=== PATIENT | male | born 1965 | race Caucasian/White ===

== ENCOUNTER 2022-07-09 16:10 | Emergency (ER) | payer OTHER, SELFPAY ==
--- NOTE | 2022-07-09 | ECG_ITS ---
Test Reason : SHOULDER PAIN/RULE OUT DC Blood Pressure : / mmHG Vent. Rate : 105 BPM Atrial Rate : 105 BPM P-R Int : 180 ms QRS Dur : 078 ms QT Int : 324 ms P-R-T Axes : 043 -06 025 degrees QTc Int : 428 ms Sinus tachycardia with occasional Premature ventricular complexes and Fusion complexes Inferior infarct , age undetermined Abnormal ECG No previous ECGs available Referred By: Generic ED Physician Electronically Signed By:DEVANG GERARDO MD
--- NOTE | ~2022-07-09 | XR_ITS ---
EXAMINATION: XR CHEST CLINICAL INFORMATION: Shoulder pain, vomiting COMPARISON: None available. TECHNIQUE: 2 views of the chest were obtained. FINDINGS: The lungs appear clear and there is no lobar or segmental airspace consolidation or groundglass opacity or effusion. There is no pneumothorax. The costophrenic sulci are well-defined. The heart is normal in size. The vascularity is normal. There are degenerative changes thoracic spine. Some punctate mineralization is seen adjacent to the right shoulder greater tuberosity suggesting calcific tendinosis. No free air beneath diaphragms. XR/XR chest 2V IMPRESSION: -Lungs clear. No pneumothorax, infiltrate, or effusion. -Punctate mineralization adjacent to right shoulder greater tuberosity suggesting calcific tendinosis.
--- NOTE | ~2022-07-09 | CT_ITS ---
EXAMINATION: CT ABDOMEN AND PELVIS WITH CONTRAST CLINICAL INFORMATION: Left lower quadrant abdominal pain COMPARISON: None available. TECHNIQUE: Multidetector volumetric images were obtained from the superior aspect of the liver through the pubic symphysis following administration 85 mL of Omnipaque 350 intravenous contrast. Sagittal and coronal reformatted images were obtained on the technologist's workstation. Oral contrast: No This CT examination was performed using dose optimization techniques as appropriate, variously including the following: *Automated exposure control *Adjustment of mA and/or kV according to patient size (this includes techniques or standardized protocols for targeted exams where dose is matched to indication/reason for exam; i.e. extremities or head) *Use of iterative reconstruction technique DLP: 1161 mGy-cm FINDINGS: LUNG BASES: See report from CT chest same day LIVER, GALLBLADDER, AND BILIARY TREE: The liver is mildly enlarged at 17.8 cm with decreased attenuation consistent with hepatic steatosis. The gallbladder contains small layering gallstones but is otherwise unremarkable with no evidence of pericholecystic inflammatory changes. PANCREAS: Unremarkable. SPLEEN: Unremarkable. ADRENAL GLANDS: Unremarkable. KIDNEYS AND URETERS: The kidneys are normal in size, shape, and attenuation. 2 adjacent benign Bosniak class I renal cysts are present at the upper pole of the left kidney which need no additional imaging or follow-up. No suspicious solid renal masses are seen. No hydronephrosis, hydroureter, or calculi seen. There is bilateral nonspecific perinephric stranding. BLADDER: Unremarkable. GASTROINTESTINAL TRACT: The small and large bowel are unremarkable aside from a few scattered colonic diverticula without diverticulitis. The appendix is unremarkable. ABDOMINAL WALL: No significant hernia is appreciated. Tiny left inguinal hernia containing only fat. LYMPH NODES: No retroperitoneal lymphadenopathy. VASCULAR: Unremarkable. PELVIC VISCERA: The prostate and seminal vesicles are unremarkable. OSSEOUS STRUCTURES: Unremarkable. CT/CT abdomen pelvis w IV con IMPRESSION: 1. A cause for the patient's acute left lower quadrant pain has not been found. 2. Incidental note made of mildly enlarged fatty liver, cholelithiasis without cholecystitis and a few scattered colonic diverticula without diverticulitis. Fleischner guidelines were followed.
--- NOTE | ~2022-07-09 | CT_ITS ---
EXAMINATION: CT ANGIOGRAM OF THE CHEST WITH AND WITHOUT CONTRAST (CT PULMONARY ANGIOGRAM FOR PE) CLINICAL INFORMATION: Reason for Exam Pleuritic chest pain, shortness of breath COMPARISON: None available. TECHNIQUE: Prior to contrast administration, noncontrast localization images were obtained. Subsequently, multidetector volumetric imaging was performed from the thoracic inlet to below the diaphragms following the administration of 85 mL Omnipaque 350 intravenous contrast. No contrast reaction reported Sagittal, coronal, and MIP oblique sagittal reformatted images were obtained on the CT workstation, uploaded to PACS, and reviewed. This CT examination was performed using dose optimization techniques as appropriate, variously including the following: *Automated exposure control *Adjustment of mA and/or kV according to patient size (this includes techniques or standardized protocols for targeted exams where dose is matched to indication/reason for exam; i.e. extremities or head) *Use of iterative reconstruction technique Total exam dose-length product 555 mGy-cm FINDINGS: QUALITY OF STUDY/CONTRAST BOLUS: Satisfactory. PULMONARY ARTERIES: No pulmonary emboli. THORACIC AORTA: No aneurysm. LUNG: No focal consolidation, nodules or masses. PLEURA: No pleural effusion or pneumothorax. MEDIASTINUM: Normal heart size. No pericardial effusion. No hilar or mediastinal lymphadenopathy. No evidence of septal bowing or right heart strain. CORONARY ARTERY CALCIFICATION: Three-vessel coronary calcifications present CHEST WALL/AXILLA: No axillary or internal mammary lymphadenopathy. OSSEOUS STRUCTURES: No acute or suspicious osseous abnormality. UPPER ABDOMEN: See report from CT abdomen pelvis performed contemporaneously. No reflux of contrast into the hepatic veins to suggest elevated right heart pressures. CT/CT angio chest PE protocol IMPRESSION: No evidence of pulmonary emboli. VTE: negative.
[2022-07-09 16:20] VITALS: BP 143/84; PULSE 89; RESP 18; TEMP 37.1; O2SAT 95; BMI 42.5
--- NOTE | 2022-07-09 16:20 | ED.GENADULT ---
HPI - General Adult General Chief complaint: Abdominal Pain <Aminah Hurley NP - Last Filed: 07/09/22 16:24> Stated complaint: Sent by to rule out coronary syndrome? <Aminah Hurley NP - Last Filed: 07/09/22 16:24> Time Seen by Provider: 07/09/22 17:40 <Aminah Hurley NP - Last Filed: 07/09/22 16:24> Source: patient <CHIOMA Estrada - Last Filed: 07/09/22 22:10> Mode of arrival: ambulatory <CHIOMA Estrada - Last Filed: 07/09/22 22:10> Limitations: no limitations <CHIOMA Estrada - Last Filed: 07/09/22 22:10> History of Present Illness HPI narrative: 57-year-old male history diabetes, rheumatoid arthritis, CVA in 2010, hypertension, coronary artery disease presenting for evaluation of diffuse abdominal pain, nausea, vomiting, black stools for the past month. Patient reports that the abdominal pain is diffuse in nature however worsened to the left side of abdomen. Patient tells me that it is worse when he goes over bumps in the road, certain movements also make it worse. He tells me sometimes he gets sensitivity to the skin of his abdomen and he feels a burning pain throughout his entire abdomen. He was seen by a someone at his PCPs office who recommended he come in for evaluation to rule out NC with atypical presentation. Patient tells me he does not have chest pain however he does report he has been having shortness of breath since yesterday, worse with exertion. He tells me he typically does not have shortness of breath. Patient denies fevers, chills, nausea, vomiting, headache, vision changes, dizziness, weakness. <CHIOMA Estrada Last Filed: 07/09/22 22:10> Related Data Home medications: Previous Rx's Medication Instructions Recorded gabapentin 100 mg capsule 100 mg PO BID #20 caps 07/09/22 <Aminah Hurley NP - Last Filed: 07/09/22 16:24> Allergies/adverse reactions: Allergies Allergy/AdvReac Type Severity Reaction Status Date / Time No Known Allergies Allergy Verified 07/09/22 16:20 <Aminah Hurley NP - Last Filed: 07/09/22 16:24> Review of Systems Review of Systems: Constitutional : No Weight loss, No Fever, No Chills, No Fatigue, No Malaise ENT/Mouth : No sore throat, No Rhinorrhea Eyes: No Eye Pain, No Swelling, No Redness Cardiovascular : No Chest Pain, + SOB, No Dyspnea on Exertion, No Orthopnea, No Edema, No Palpitations Respiratory : No Cough, No Sputum, No Wheezing Gastrointestinal : + Nausea, + Vomiting, No Diarrhea, No Constipation, + abdominal Pain, No Hematochezia, No Melena Genitourinary : No Dysuria, No Urinary Frequency, No Hematuria, Musculoskeletal : No joint pain, No Myalgias, No Joint Swelling Skin : No Skin Lesions, No rash Neuro : No Weakness, No Numbness, No Dizziness, No Headache Psych : No Anxiety/Panic, No Depression All other systems reviewed and are negative <CHIOMA Estrada - Last Filed: 07/09/22 22:10> Yes all other systems are reviewed and are negative <CHIOMA Estrada - Last Filed: 07/09/22 22:10> [facility] Past Medical History Attestation statement: The following information was validated with the patient. <CHIOMA Estrada - Last Filed: 07/09/22 22:10> Source: old records reviewed and nursing notes reviewed <CHIOMA Estrada - Last Filed: 07/09/22 22:10> Social History Social History: Social History Alcohol intake: never Smoked in Last 30 Days: No Use of substances other than those prescribed or required for medical reasons: No Advance Directives: No Advance Directives Information Provided: No <Aminah Hurley NP - Last Filed: 07/09/22 16:24> Physical Exam ED Vital Signs: Vital Signs - 24 hr 07/09/22 16:20 07/09/22 17:42 07/09/22 20:23 Temperature 98.7 F 98.2 F Pulse Rate 89 104 H Respiratory Rate 18 18 16 Blood Pressure 143/84 H 151/90 H Pulse Oximetry 95 96 Oxygen Delivery Method Room Air Room Air BMI result Body Mass Index 42.5 <Aminah Hurley NP - Last Filed: 07/09/22 16:24> Vital Signs - 24 hr 07/09/22 16:20 07/09/22 17:42 07/09/22 20:23 Temperature 98.7 F 98.2 F Pulse Rate 89 104 H Respiratory Rate 18 18 16 Blood Pressure 143/84 H 151/90 H Pulse Oximetry 95 96 Oxygen Delivery Method Room Air Room Air BMI result Body Mass Index 42.5 vss <CHIOMA Estrada - Last Filed: 07/09/22 22:10> Appearance: Alert.? Oriented X3.? No acute distress.? Head: Normocephalic, atraumatic, no step-offs or deformities Eyes: Pupils equal, round and reactive to light.? Neck: Normal inspection.? Neck supple.? CVS: Rapid rate normal rythem likely sinus tac.? Pulses normal.? Respiratory: No respiratory distress.? Breath sounds normal.? Abdomen: Soft and nontender.?Normal BS. No rash Skin: Skin warm and dry.? Normal skin color.? Normal skin turgor.? Extremities: No lower extremity edema.? No calf ttp. 5/5 strength to bilateral upper and lower extremities Neuro: Oriented X 3.? No motor deficit.? No sensory deficit. CN 2-12 intact <CHIOMA Estrada - Last Filed: 07/09/22 22:10> Course Course Course Narrative: This is a rapid medical exam. Deferred additional HPI, ROS, PE to primary provider. 57 yo male with history of CAD, DM, RA, CVA 2010, HTN, HLD here with left sided abdominal pain/vomiting/black stool x 1 month. Seen by PCP and referred in to the ER for further eval. Received call from PCP office-their primary concern was r.o ACS. Patient tells me his pain is mid abdomen. No epigastric pain/chest pain. Will obtain labs, EKG, COVID screen, UA. VSS <Aminah Hurley NP - Last Filed: 07/09/22 16:24> Reevaluation(s) Reevaluation #1: CBC no acute findings. Chemistry with no acute findings requiring intervention. Troponin negative, EKG showing sinus tachycardia with occasional PVCs however no signs of ST elevations or inversions or acute ischemia unlikely ACS. Will repeat troponin. COVID negative. CTA abdomen pelvis as well as chest pending at this time. Also pending OBS. <CHIOMA Estrada - Last Filed: 07/09/22 22:10> Time: 19:36 <CHIOMA Estrada - Last Filed: 07/09/22 22:10> Reevaluation #2: Patient refusing OBS will give him outpatient slips for stool samples. He tells me he will be able to give us a stool sample here so I will give him outpatient paperwork. His hemoglobin and hematocrit are stable, no chapis blood in stool per patient. Patient feeling well, refused morphine as he states he is comfortable. <CHIOMA Estrada - Last Filed: 07/09/22 22:10> Time: 21:34 <CHIOMA Estrada - Last Filed: 07/09/22 22:10> Reevaluation #3: Second troponin lower than initial, unlikely that this is ACS. CTA with no PE. CT of the abdomen pelvis unable to identify a cause of patient's left lower quadrant pain. Incidental no of mildly enlarged fatty liver, cholecystitis, no signs of diverticulitis. Patient tells me he has had burning pain before and he took gabapentin for and helped. Will discharge home on gabapentin. <CHIOMA Estrada - Last Filed: 07/09/22 22:10> Time: 22:09 <CHIOMA Estrada - Last Filed: 07/09/22 22:10> Medications Administered Discontinued Medications Generic Name Dose Route Start Last Admin Trade Name Freq PRN Reason Stop Dose Admin Iohexol 100 ml 07/09/22 20:11 07/09/22 20:11 Iohexol 350 Mg/Ml 100 Ml Infus..Btl IV 07/09/22 20:12 85 ml ONCE ONE Administration Morphine Sulfate 4 mg 07/09/22 19:13 07/09/22 20:23 Morphine Sulfate 4 Mg/Ml Cartridge IVPUSH 07/09/22 19:14 Not Given ONCE ONE Protocol <Aminah Hurley NP - Last Filed: 07/09/22 16:24> Medications Administered Discontinued Medications Generic Name Dose Route Start Last Admin Trade Name Tony PRN Reason Stop Dose Admin Iohexol 100 ml 07/09/22 20:11 07/09/22 20:11 Iohexol 350 Mg/Ml 100 Ml Infus..Btl IV 07/09/22 20:12 85 ml ONCE ONE Administration Morphine Sulfate 4 mg 07/09/22 19:13 07/09/22 20:23 Morphine Sulfate 4 Mg/Ml Cartridge IVPUSH 07/09/22 19:14 Not Given ONCE ONE Protocol <CHIOMA Estrada - Last Filed: 07/09/22 22:10> Medical Decision Making Medical Decision Making [facility] Narrative: [id number] 57 year old male presents to ED for evaluation of nausea, vomiting, dark stool and abd pain X1 month, sent in by PCP for evaluation of coronary syndrome. Physical examination benign. Likely neuropathic pain as he describes this as a burning sensation to his abdomen, no signs of shingles. I do not suspect ACS, PE, CHF. DVT. No signs of acute abdomen. Other differentials include musculoskeletal pain. Plan labs, imaging, urine. <CHIOMA Estrada - Last Filed: 07/09/22 22:10> Differential Diagnosis Differential Diagnoses: The differential diagnosis associated with the presentation includes <CHIOMA Estrada - Last Filed: 07/09/22 22:10> Likely neuropathic pain as he describes this as a burning sensation to his abdomen, no signs of shingles. I do not suspect ACS, PE, CHF. No signs of acute abdomen. Other differentials include musculoskeletal pain. <CHIOMA Estrada - Last Filed: 07/09/22 22:10> Admission/Observation Consideration of admission/observation: Escalation of care including admission/observation considered <CHIOMA Estrada Last Filed: 07/09/22 22:10> Unlikely <CHIOMA Estrada - Last Filed: 07/09/22 22:10> Lab Data [facility] Lab Attestation statement: I reviewed the patient's lab results. <CHIOMA Estrada Last Filed: 07/09/22 22:10> Result Diagrams: 07/09/22 16:41 07/09/22 16:41 <Aminah Hurley, BIOLOGY TUTOR - Last Filed: 07/09/22 16:24> Labs: Lab Results 07/09/22 07/09/22 07/09/22 Range/Units 16:41 16:41 16:41 WBC 9.1 (4.8-10.8) X10*3/uL RBC 5.23 (4.60-5.80) X10*6/uL Hgb 16.0 (14.0-18.0) g/dl Hct 47.2 (42.0-52.0) % MCV 90.2 (80.0-98.0) fL MCH 30.6 (27.0-33.0) pg MCHC 33.9 (31.0-36.0) g/dl RDW 13.3 (11.0-16.0) % Plt Count 273 (160-400) X10*3/uL MPV 11.2 (9.4-12.4) fL Immature Gran % (Auto) 0.5 H (0.0-0.4) % Neut % (Auto) 65.0 (45-73) % Lymph % (Auto) 22.5 (20-40) % [place] % (Auto) 8.9 (2-11) % Eos % (Auto) 2.6 (0-4) % Baso % (Auto) 0.5 (0-2) % Lymph # (Auto) 2.1 (1.2-4.9) X10*3/uL [place] # (Auto) 0.8 (0.1-1.2) X10*3/uL Eos # (Auto) 0.2 (0.0-0.4) X10*3/uL Baso # (Auto) 0.1 (0.0-0.2) X10*3/uL Abs Immat Gran (auto) 0.05 H (0.00-0.03) X10*3/uL Absolute Neuts (auto) 5.9 (2.0-8.3) x10*3/uL Absolute Nucleated RBC 0.000 (0.0-0.012) X10*3/uL Nucleated RBC % (auto) 0.0 (0.0-0.2) /100WBC D-Dimer High Sensitivty NG/ML Sodium 139 (135-145) mmol/L Potassium 4.1 (3.3-5.1) mmol/L Chloride 106 (96-108) mmol/L Carbon Dioxide 27 (22-29) mmol/L Anion Gap 10 L (12-20) BUN 16 (9-16) mg/dL Creatinine 0.96 (0.5-1.4) mg/dL Estim Creat Clear Calc 104.3 Estimated GFR > 60 Random Glucose 273 H (60-115) mg/dL Calcium 8.6 (8.4-10.2) mg/dL Total Bilirubin 0.5 (0.0-1.0) mg/dL Direct Bilirubin 0.1 (0.0-0.5) mg/dL AST 21 (5-37) U/L ALT 27 (0-40) U/L Alkaline Phosphatase 92 (39-117) U/L Troponin I High Sens 8.0 (<3.5-35.0) ng/L Total Protein 6.8 (6.5-8.0) g/dL Albumin 3.9 (3.5-5.0) g/dL Lipase 20 (8-78) U/L COVID-19 ([facility]) (Negative) COVID-19 Clin Com 07/09/22 07/09/22 07/09/22 Range/Units 16:41 19:57 19:57 WBC (4.8-10.8) X10*3/uL RBC (4.60-5.80) X10*6/uL Hgb (14.0-18.0) g/dl Hct (42.0-52.0) % MCV (80.0-98.0) fL MCH (27.0-33.0) pg MCHC (31.0-36.0) g/dl RDW (11.0-16.0) % Plt Count (160-400) X10*3/uL MPV (9.4-12.4) fL Immature Gran % (Auto) (0.0-0.4) % Neut % (Auto) (45-73) % Lymph % (Auto) (20-40) % [place] % (Auto) (2-11) % Eos % (Auto) (0-4) % Baso % (Auto) (0-2) % Lymph # (Auto) (1.2-4.9) X10*3/uL [place] # (Auto) (0.1-1.2) X10*3/uL Eos # (Auto) (0.0-0.4) X10*3/uL Baso # (Auto) (0.0-0.2) X10*3/uL Abs Immat Gran (auto) (0.00-0.03) X10*3/uL Absolute Neuts (auto) (2.0-8.3) x10*3/uL Absolute Nucleated RBC (0.0-0.012) X10*3/uL Nucleated RBC % (auto) (0.0-0.2) /100WBC D-Dimer High Sensitivty 373 NG/ML Sodium (135-145) mmol/L Potassium (3.3-5.1) mmol/L Chloride (96-108) mmol/L Carbon Dioxide (22-29) mmol/L Anion Gap (12-20) BUN (9-16) mg/dL Creatinine (0.5-1.4) mg/dL Estim Creat Clear Calc Estimated GFR Random Glucose (60-115) mg/dL Calcium (8.4-10.2) mg/dL Total Bilirubin (0.0-1.0) mg/dL Direct Bilirubin (0.0-0.5) mg/dL AST (5-37) U/L ALT (0-40) U/L Alkaline Phosphatase (39-117) U/L Troponin I High Sens 7.7 (<3.5-35.0) ng/L Total Protein (6.5-8.0) g/dL Albumin (3.5-5.0) g/dL Lipase (8-78) U/L COVID-19 ([facility]) Negative (Negative) COVID-19 Clin Com See Note <Aminah Hurley, BIOLOGY TUTOR - Last Filed: 07/09/22 16:24> Lab Results 07/09/22 07/09/22 07/09/22 Range/Units 16:41 16:41 16:41 WBC 9.1 (4.8-10.8) X10*3/uL RBC 5.23 (4.60-5.80) X10*6/uL Hgb 16.0 (14.0-18.0) g/dl Hct 47.2 (42.0-52.0) % MCV 90.2 (80.0-98.0) fL MCH 30.6 (27.0-33.0) pg MCHC 33.9 (31.0-36.0) g/dl RDW 13.3 (11.0-16.0) % Plt Count 273 (160-400) X10*3/uL MPV 11.2 (9.4-12.4) fL Immature Gran % (Auto) 0.5 H (0.0-0.4) % Neut % (Auto) 65.0 (45-73) % Lymph % (Auto) 22.5 (20-40) % [place] % (Auto) 8.9 (2-11) % Eos % (Auto) 2.6 (0-4) % Baso % (Auto) 0.5 (0-2) % Lymph # (Auto) 2.1 (1.2-4.9) X10*3/uL [place] # (Auto) 0.8 (0.1-1.2) X10*3/uL Eos # (Auto) 0.2 (0.0-0.4) X10*3/uL Baso # (Auto) 0.1 (0.0-0.2) X10*3/uL Abs Immat Gran (auto) 0.05 H (0.00-0.03) X10*3/uL Absolute Neuts (auto) 5.9 (2.0-8.3) x10*3/uL Absolute Nucleated RBC 0.000 (0.0-0.012) X10*3/uL Nucleated RBC % (auto) 0.0 (0.0-0.2) /100WBC D-Dimer High Sensitivty NG/ML Sodium 139 (135-145) mmol/L Potassium 4.1 (3.3-5.1) mmol/L Chloride 106 (96-108) mmol/L Carbon Dioxide 27 (22-29) mmol/L Anion Gap 10 L (12-20) BUN 16 (9-16) mg/dL Creatinine 0.96 (0.5-1.4) mg/dL Estim Creat Clear Calc 104.3 Estimated GFR > 60 Random Glucose 273 H (60-115) mg/dL Calcium 8.6 (8.4-10.2) mg/dL Total Bilirubin 0.5 (0.0-1.0) mg/dL Direct Bilirubin 0.1 (0.0-0.5) mg/dL AST 21 (5-37) U/L ALT 27 (0-40) U/L Alkaline Phosphatase 92 (39-117) U/L Troponin I High Sens 8.0 (<3.5-35.0) ng/L Total Protein 6.8 (6.5-8.0) g/dL Albumin 3.9 (3.5-5.0) g/dL Lipase 20 (8-78) U/L COVID-19 ([facility]) (Negative) COVID-19 Clin Com 07/09/22 07/09/22 07/09/22 Range/Units 16:41 19:57 19:57 WBC (4.8-10.8) X10*3/uL RBC (4.60-5.80) X10*6/uL Hgb (14.0-18.0) g/dl Hct (42.0-52.0) % MCV (80.0-98.0) fL MCH (27.0-33.0) pg MCHC (31.0-36.0) g/dl RDW (11.0-16.0) % Plt Count (160-400) X10*3/uL MPV (9.4-12.4) fL Immature Gran % (Auto) (0.0-0.4) % Neut % (Auto) (45-73) % Lymph % (Auto) (20-40) % [place] % (Auto) (2-11) % Eos % (Auto) (0-4) % Baso % (Auto) (0-2) % Lymph # (Auto) (1.2-4.9) X10*3/uL [place] # (Auto) (0.1-1.2) X10*3/uL Eos # (Auto) (0.0-0.4) X10*3/uL Baso # (Auto) (0.0-0.2) X10*3/uL Abs Immat Gran (auto) (0.00-0.03) X10*3/uL Absolute Neuts (auto) (2.0-8.3) x10*3/uL Absolute Nucleated RBC (0.0-0.012) X10*3/uL Nucleated RBC % (auto) (0.0-0.2) /100WBC D-Dimer High Sensitivty 373 NG/ML Sodium (135-145) mmol/L Potassium (3.3-5.1) mmol/L Chloride (96-108) mmol/L Carbon Dioxide (22-29) mmol/L Anion Gap (12-20) BUN (9-16) mg/dL Creatinine (0.5-1.4) mg/dL Estim Creat Clear Calc Estimated GFR Random Glucose (60-115) mg/dL Calcium (8.4-10.2) mg/dL Total Bilirubin (0.0-1.0) mg/dL Direct Bilirubin (0.0-0.5) mg/dL AST (5-37) U/L ALT (0-40) U/L Alkaline Phosphatase (39-117) U/L Troponin I High Sens 7.7 (<3.5-35.0) ng/L Total Protein (6.5-8.0) g/dL Albumin (3.5-5.0) g/dL Lipase (8-78) U/L COVID-19 ([facility]) Negative (Negative) COVID-19 Clin Com See Note <CHIOMA Estrada Last Filed: 07/09/22 22:10> Independent Interpretation I performed an independent interpretation of an: Plain X-Ray (XR/XR chest 2V IMPRESSION: -Lungs clear. No pneumothorax, infiltrate, or effusion. -Punctate mineralization adjacent to right shoulder greater tuberosity suggesting calcific tendinosis. ) and CT Scan (CT/CT abdomen pelvis w IV con IMPRESSION: 1. A cause for the patient's acute left lower quadrant pain has not been found. 2. Incidental note made of mildly enlarged fatty liver, cholelithiasis without cholecystitis and a few scattered colonic diverticula without diverticulitis. Gaby rosalesl) <CHIOMA Estrada Last Filed: 07/09/22 22:10> Interpretation: CT/CT angio chest PE protocol IMPRESSION: No evidence of pulmonary emboli. VTE: negative. ? ? <CHIOMA Estrada Filed: 07/09/22 22:10> Radiology Impression Discussion of test interpretation with radiology: I have reviewed the radiologist's reading. <CHIOMA Estrada - Last Filed: 07/09/22 22:10> Chronic Conditions Patient?s care impacted by: Diabetes and Hypertension <CHIOMA Estrada - Last Filed: 07/09/22 22:10> Core Measures AMI core measures followed: Yes <CHIOMA Estrada - Last Filed: 07/09/22 22:10> Measure exclusions: not indicated <CHIOMA Estrada - Last Filed: 07/09/22 22:10> Critical Care Time Critical Care Time Critical Care Time: No <CHIOMA Estrada - Last Filed: 07/09/22 22:10> Discharge Plan Discharge Clinical Impression: Abdominal pain, Shortness of breath, Dark stools <Aminah Hurley NP - Last Filed: 07/09/22 16:24> Patient Disposition: Home, Self-Care <Aminah Hurley NP - Last Filed: 07/09/22 16:24> Instructions: Abdominal Pain (ED), Shortness of Breath (ED) <Aminah Hurley NP - Last Filed: 07/09/22 16:24> Additional Instructions: Take your medications as prescribed. If you were prescribed antibiotics today, it is important that you take your medication to their entirety, do not skip any doses, do not finish them early. Follow-up with your primary care provider this week. Return to the emergency department with new or worsening symptoms. Such as fevers, chills, chest pain, shortness of breath, nausea, vomiting, dizziness, headache, vision changes, lethargy In case of emergency call 911 Your cardiac enzyme troponin was negative twice and your EKG looked good XR/XR chest 2V IMPRESSION: -Lungs clear. No pneumothorax, infiltrate, or effusion. -Punctate mineralization adjacent to right shoulder greater tuberosity suggesting calcific tendinosis. CT/CT angio chest PE protocol IMPRESSION: No evidence of pulmonary emboli. VTE: negative. ? CT/CT abdomen pelvis w IV con IMPRESSION: 1.? A cause for the patient's acute left lower quadrant pain has not been found. 2.? Incidental note made of mildly enlarged fatty liver, cholelithiasis without cholecystitis and a few scattered colonic diverticula without diverticulitis. ? Fleischner guidelines were followed. <Aminah Hurley NP - Last Filed: 07/09/22 16:24> Prescriptions: New gabapentin 100 mg capsule 100 mg PO BID Qty: 20 0RF <Aminah Hurley NP - Last Filed: 07/09/22 16:24> Referrals: [facility] Cardiovascular Services [Provider Group] - [address] [facility] Gastroenterology Services [Provider Group] - 2 days Gwen Garcia, BIOLOGY TUTOR [Primary Care Provider] - 2 days <Aminah Hurley NP - Last Filed: 07/09/22 16:24> Stand Alone Forms: Work/School Release <Aminah Hurley NP - Last Filed: 07/09/22 16:24>
[2022-07-09 16:47] LABS: MANUAL DIFF FLAG NO
[2022-07-09 16:50] LABS: Basophils Absolute Auto 0.1 X10*3/uL (0.0-0.2); Basophils Percent Auto 0.5 % (0-2); Eosinophils Absolute Auto 0.2 X10*3/uL (0.0-0.4); Eosinophils Percent Auto 2.6 % (0-4); Hematocrit 47.2 % (42.0-52.0); Imm Gran Abs Auto 0.05 X10*3/uL (0.00-0.03); Imm Gran Pct Auto 0.5 % (0.0-0.4); Lymphocytes Absolute Auto 2.1 X10*3/uL (1.2-4.9); Lymphocytes Percent Auto 22.5 % (20-40); Mean Corpuscular HGB Conc 33.9 g/dl (31.0-36.0); Mean Corpuscular Hemoglobin 30.6 pg (27.0-33.0); Mean Corpuscular Volume 90.2 fL (80.0-98.0); Mean Platelet Volume 11.2 fL (9.4-12.4); Monocytes Absolute Auto 0.8 X10*3/uL (0.1-1.2); Monocytes Percent Auto 8.9 % (2-11); Neutrophils Absolute Auto 5.9 x10*3/uL (2.0-8.3); Platelet Count 273 X10*3/uL (160-400); Red Blood Count 5.23 X10*6/uL (4.60-5.80); Red Cell Distribution Width 13.3 % (11.0-16.0); White Blood Count 9.1 X10*3/uL (4.8-10.8)
[2022-07-09 17:02] LABS: COVID-19 Test Negative (Negative); IDNOW Serial# 08D9AD1C
[2022-07-09 17:03] LABS: Alanine Aminotransferase 27 U/L (0-40); Albumin Level 3.9 g/dL (3.5-5.0); Alkaline Phosphatase 92 U/L (39-117); Anion Gap 10 (12-20); Aspartate Amino Transferase 21 U/L (5-37); Bilirubin Direct 0.1 mg/dL (0.0-0.5); Bilirubin Total 0.5 mg/dL (0.0-1.0); Blood Urea Nitrogen 16 mg/dL (9-16); Calcium 8.6 mg/dL (8.4-10.2); Carbon Dioxide 27 mmol/L (22-29); Chloride 106 mmol/L (96-108); Creatinine Clr Calc Pharmacy 104.3; Estimated Glomerular Filt Rate > 60; Glucose Random 273 mg/dL (60-115); Lipase 20 U/L (8-78); Potassium 4.1 mmol/L (3.3-5.1); Sodium 139 mmol/L (135-145); Total Protein 6.8 g/dL (6.5-8.0)
[2022-07-09 17:42] VITALS: BP 151/90; PULSE 104; RESP 18; TEMP 36.8; O2SAT 96
--- NOTE | 2022-07-09 17:47 | PC.NURSE ---
Pt arrived ambulatory, reporting 1month of abdominal pain, with some recent dark stools, and red streaking pt does report he has hemorrhoids. Denies CP/SOB/n/v/d. Labs completed, waiting provider at this time
[2022-07-09 20:11] LABS: D Dimer High Sensitivity 373 NG/ML
[2022-07-09] MEDS: iohexoL 350 MG/ML 100 ML INFUS..BTL IV (20:11)
[2022-07-09 20:23] VITALS: RESP 16
[2022-07-09 20:24] LABS: Troponin-I High Sensitivity 7.7 ng/L (<3.5-35.0)
--- NOTE | 2022-07-09 20:24 | PC.NURSE ---
Pt declined IV morphine. Pt stated that they don't have much pain at all at this time.
--- NOTE | 2022-07-09 22:16 | PC.NURSE ---
Pt unable to provide stool sample. This RN gave pt hat for the toilet and sample cup to collect sample and deliver to outpatient lab after discharge.
== END 2022-07-09 22:23 | disposition home or self-care (01) ==
PROVIDERS: Nurse Practitioner Family; Physician Assistant; Emergency Provider Emergency Medicine; PCP Nurse Practitioner Family
DX: R10.2 Pelvic and perineal pain (principal); R06.02 Shortness of breath; R07.89 Other chest pain; R11.2 Nausea with vomiting, unspecified; Z20.822 Contact with and (suspected) exposure to COVID-19; Z20.828 Contact with and (suspected) exposure to other viral communicable diseases; Z79.899 Other long term (current) drug therapy
CPT/HCPCS: 36415; 71046; 71275; 74177; 80048; 80076; 83690; 84484; 85025; 85379; 87635; 93005; 99284; 99285; Q9967

== ENCOUNTER 2023-10-19 04:07 | Emergency (ER) | payer OTHER, SELFPAY ==
--- NOTE | ~2023-10-19 | XR_ITS ---
EXAMINATION: XR CHEST CLINICAL INFORMATION: Dyspnea COMPARISON: 07/09/2022 TECHNIQUE: Frontal view of the chest was obtained. FINDINGS: Lung volumes are symmetric. No focal consolidation is seen. No evidence of pneumothorax, pleural effusion, or pulmonary edema. The cardiomediastinal contour is unremarkable. No acute osseous findings are seen. XR/XR chest 1V IMPRESSION: No acute cardiopulmonary findings.
[2023-10-19 04:12] VITALS: BP 145/105; PULSE 98; RESP 24; TEMP 36.6; O2SAT 94; BMI 42.3
--- NOTE | 2023-10-19 04:39 | ECG_ITS ---
Test Reason : SOB Blood Pressure : / mmHG Vent. Rate : 099 BPM Atrial Rate : 099 BPM P-R Int : 166 ms QRS Dur : 082 ms QT Int : 330 ms P-R-T Axes : 031 000 038 degrees QTc Int : 423 ms Sinus rhythm with marked sinus arrhythmia Premature atrial complexes Premature ventricular complexes vs fusion complex Borderline ECG When compared with ECG of 09-JUL-2022 16:15, No significant changes seen Referred By: Hermelindo Schmitt Electronically Signed By:RIA LIPSCOMB
--- NOTE | 2023-10-19 04:40 | ED_ITS ---
HPI - SOB/Dyspnea General Chief Complaint: Dyspnea Stated Complaint: SOB Time Seen by Provider: 10/19/23 04:38 Source: patient Mode of arrival: ambulatory Limitations: no limitations History of Present Illness ED Provider: DR. Schmitt HPI Narrative: 58-year-old male former smoker presented with 2 weeks of shortness of breath and coughing with clear phlegm. Patient was seen at an urgent care was treated with bronchodilator and prednisone patient felt improved for sometimes then symptoms started to worsen again. no sick contacts, no recent travel. no chest pain. Patient has no history of lung disease /COPD. Related Data Previous Rx's ?Medication ?Instructions ?Recorded gabapentin 100 mg capsule 100 mg PO BID #20 caps 07/09/22 albuterol sulfate 90 mcg/actuation 1 inh inhalation QID PRN shortness 10/19/23 aerosol inhaler of breath or wheezing #8.5 grams azithromycin 250 mg tablet See Rx Instructions PO .COMPLEX #6 10/19/23 (Zithromax Z-Elio) tabs prednisone 20 mg tablet 20 mg PO BID #10 tabs 10/19/23 Allergies Allergy/AdvReac Type Severity Reaction Status Date / Time No Known Allergies Allergy Verified 10/19/23 04:14 Review of Systems 2 Review of Systems: All other systems are reviewed and are negative Constitutional: Reports as per HPI and Reports no additional constitutional complaints Eyes: Reports as per HPI and Reports no additional eye complaints Reports system reviewed and no additional complaints, except as documented Cardiovascular: Reports as per HPI and Reports no additional cardiovascular complaints Respiratory: Reports as per HPI and Reports no additional respiratory complaints Gastrointestinal: Reports as per HPI and Reports no additional gastrointestinal complaints Genitourinary: Reports no additional female genitourinary complaints Musculoskeletal: Reports no additional musculoskeletal complaints Skin/Breast: Reports system reviewed and no additional complaints, except as docu Psychiatric: Reports no additional psychiatric complaints Endocrine: Reports no additional endocrine complaints Hematologic/Lymphatic: Reports no additional hematologic/lymphatic complaints Allergic/Immunologic: Reports no additional allergic/immunologic complaints Reports system reviewed and no additional complaints, except as documented and Reports Abnormal speech present [facility] Social History Social History Alcohol intake: never Smoked in Last 30 Days: No Use of substances other than those prescribed or required for medical reasons: No Advance Directives: No Advance Directives Information Provided: Yes Physical Exam 2 Vital Signs: Vital Signs: Last Vital Signs Temp 98.4 F 10/19/23 05:25 Pulse 93 10/19/23 05:46 Resp 18 10/19/23 05:46 BP 138/90 H 10/19/23 05:25 Pulse Ox 95 10/19/23 05:25 O2 Del Method Room Air 10/19/23 05:25 BMI result Body Mass Index 42.3 Vital signs have been reviewed and appear to be correct. Blood pressure elevated. Heart rate normal. Respiratory rate normal. Temperature normal. Oxygen saturation normal. Appearance: Alert. Oriented X3. No acute distress. Head: Normal external exam. Normocephalic. Atraumatic. No Anderson signs noted. No raccoon eyes noted Eyes: PERRLA. EOMI. Conjunctiva and sclera normal. Eyelids normal. ENT: TM's Normal. Pharynx normal. Uvula midline. Moist mucous membranes. No trismus noted. No drooling noted. No muffled voice noted. Neck: Normal inspection. Neck supple. FROM. No adenopathy. Thyroid Normal. No meningeal signs. No neck mass noted. CVS: Normal heart rate and rhythm. Heart sound normal. No murmurs noted. Pulses normal throughout. Respiratory: No respiratory distress. Painless inspiration. Breath sounds normal. Diffuse expiratory wheezing with prolonged expiration.Chest nontender. No accessory muscle usage noted or decreased air movement noted. Abdomen: Soft and nontender. Bowel sounds normal in all 4 quadrants. No distention noted. No organomegaly noted. No visible injury noted. Back: No CVA tenderness. Full range of motion noted. Skin: Skin warm and dry. Normal skin color. Normal skin turgor. No rashes/lesions/lacerations noted. Extremities: No lower extremity edema. Extremities exhibit normal range of motion. Extremities nontender. Neuro: Oriented X 3. Cranial nerve exam: II-XII are grossly intact No motor deficit. No sensory deficit. Reflexes normal. Course Reevaluation(s) Reevaluation #1: 58-year-old male came in with 2 weeks congestion, coughing, wheezing, and difficulty breathing. Patient received continuous bronchodilator with Solu- Medrol patient feels better able to ambulate in the ED and post exertional O2 sat 96-93%, patient expressed subjective improvement. will discharge the patient on Z-Elio/prednisone / albuterol. Time: 06:41 Medications Administered Discontinued Medications Generic Name Dose Route Start Last Admin Trade Name Freq PRN Reason Stop Dose Admin Albuterol Sulfate 2.5 mg/ 0 mg 10/19/23 05:40 10/19/23 05:42 Albuterol/Ipratropium 3 ml INHALE 10/19/23 05:41 2.5 dose ONCE ONE Administration Methylprednisolone Sodium Succinate 125 mg 10/19/23 04:39 10/19/23 05:13 Methylprednisolone Sod Succ 125 Mg/2 Ml Vial IVPUSH 10/19/23 04:40 125 mg ONCE ONE Administration Medical Decision Making Differential Diagnosis Differential Diagnoses: The differential diagnosis associated with the presentation includes ( Pneumonia, pneumothorax, pleural effusion, bronchitis, pulmonary embolism, electrolyte derangement, severe anemia, CHF.) Admission/Observation Consideration of admission/observation: Escalation of care including admission/observation considered Lab Data MDM Lab Attestation statement: I reviewed the patient's lab results. 10/19/23 05:04 10/19/23 05:04 Labs: Lab Results 10/19/23 10/19/23 10/19/23 Range/Units 04:37 05:04 05:15 WBC 10.8 (4.8-10.8) X10*3/uL RBC 5.52 (4.60-5.80) X10*6/uL Hgb 16.9 (14.0-18.0) g/dl Hct 49.4 (42.0-52.0) % MCV 89.5 (80.0-98.0) fL MCH 30.6 (27.0-33.0) pg MCHC 34.2 (31.0-36.0) g/dl RDW 13.1 (11.0-16.0) % Plt Count 306 (160-400) X10*3/uL MPV 10.6 (9.4-12.4) fL Immature Gran % (Auto) 2.0 H (0.0-0.4) % Neut % (Auto) 54.9 (45-73) % Lymph % (Auto) 25.9 (20-40) % [place] % (Auto) 9.6 (2-11) % Eos % (Auto) 6.5 H (0-4) % Baso % (Auto) 1.1 (0-2) % Lymph # (Auto) 2.8 (1.2-4.9) X10*3/uL [place] # (Auto) 1.0 (0.1-1.2) X10*3/uL Eos # (Auto) 0.7 H (0.0-0.4) X10*3/uL Baso # (Auto) 0.1 (0.0-0.2) X10*3/uL Abs Immat Gran (auto) 0.22 H (0.00-0.03) X10*3/uL Absolute Neuts (auto) 5.9 (2.0-8.3) x10*3/uL Absolute Nucleated RBC 0.000 (0.0-0.012) X10*3/uL Nucleated RBC % (auto) 0.0 (0.0-0.2) /100WBC D-Dimer High Sensitivty 230 NG/ML Sodium 134 L (135-145) mmol/L Potassium 4.4 (3.3-5.1) mmol/L Chloride 100 (96-108) mmol/L Carbon Dioxide 23 (22-29) mmol/L Anion Gap 15 (12-20) BUN 17 H (9-16) mg/dL Creatinine 0.83 (0.5-1.4) mg/dL Estim Creat Clear Calc 118.6 Estimated GFR > 60 Random Glucose 289 H (60-115) mg/dL Lactic Acid 2.0 (0.5-2.0) mmol/L Calcium 9.8 D (8.4-10.2) mg/dL Total Bilirubin 0.5 (0.0-1.0) mg/dL Direct Bilirubin 0.1 (0.0-0.5) mg/dL AST 14 (5-37) U/L ALT 26 (0-40) U/L Alkaline Phosphatase 84 (39-117) U/L Troponin I High Sens 11.7 D (<3.5-35.0) ng/L B-Natriuretic Peptide 10 (<100) pg/mL Total Protein 7.4 (6.5-8.0) g/dL Albumin 3.8 (3.5-5.0) g/dL Lipase 32 (8-78) U/L Urine Color Yellow Urine Appearance Clear Urine pH 5.5 (5.0-9.0) Ur Specific [place] 1.020 (1.005-1.025) Urine Protein Trace (Neg-Trace) mg/dL Urine Glucose (UA) >=1000 H (Negative) mg/dL Urine Ketones Negative (Negative) mg/dL Urine Blood Negative (Negative) Urine Nitrite Negative (Negative) Ur Leukocyte Esterase Negative (Negative) Urine RBC 0-2 (0-2) /HPF Urine WBC 0-5 (0-5) /HPF Ur Squamous Epith Cells 0-2 (0-2) /HPF Urine Bacteria None Seen (None Seen) Hyaline Casts 0-2 (0-2) /LPF Influenza Type A (PCR) NEGATIVE (Negative) Influenza Type B (PCR) NEGATIVE (Negative) RSV RNA Qual (PCR) NEGATIVE (Negative) SARS-CoV-2 RNA (RT-PCR) NEGATIVE (Negative) S. pyogenes GrpA JOSE Negative (Negative) Independent Interpretation I performed an independent interpretation of an: Plain X-Ray ( Chest: No acute cardiopulmonary findings.) Radiology Impression Discussion of test interpretation with radiology: I have reviewed the radiologist's reading. Discharge Plan Discharge Clinical Impression: Bronchitis Patient Disposition: Home, Self-Care Instructions: Acute Bronchitis (ED) Prescriptions: New prednisone 20 mg tablet 20 mg PO BID Qty: 10 0RF azithromycin [Zithromax Z-Elio] 250 mg tablet See Rx Instructions .ROUTE .COMPLEX Qty: 6 0RF Rx Instructions: For 250 mg dose pack: take 500 mg today (day 1), then 250 mg for 4 days (days 2-5) albuterol sulfate 90 mcg/actuation HFA aerosol inhaler 1 inh inhalation QID PRN (Reason: shortness of breath or wheezing) Qty: 8.5 0RF No Action gabapentin 100 mg capsule 100 mg PO BID Qty: 20 0RF Referrals: Gwen Garcia NP [Primary Care Provider] - Print Language: Trinidadian
[2023-10-19 04:51] LABS: IDNOW Serial# 08D9AD1C; Strep A Nucleic Acid Negative (Negative)
[2023-10-19] MEDS: methylPREDNISolone Sod Succ 125 MG/2 ML VIAL IVPUSH (05:13)
[2023-10-19 05:14] LABS: MANUAL DIFF FLAG NO
[2023-10-19 05:15] LABS: Basophils Absolute Auto 0.1 X10*3/uL (0.0-0.2); Basophils Percent Auto 1.1 % (0-2); Eosinophils Absolute Auto 0.7 X10*3/uL (0.0-0.4); Eosinophils Percent Auto 6.5 % (0-4); Hematocrit 49.4 % (42.0-52.0); Hemoglobin 16.9 g/dl (14.0-18.0); Imm Gran Abs Auto 0.22 X10*3/uL (0.00-0.03); Lymphocytes Absolute Auto 2.8 X10*3/uL (1.2-4.9); Lymphocytes Percent Auto 25.9 % (20-40); Mean Corpuscular HGB Conc 34.2 g/dl (31.0-36.0); Mean Corpuscular Hemoglobin 30.6 pg (27.0-33.0); Mean Corpuscular Volume 89.5 fL (80.0-98.0); Mean Platelet Volume 10.6 fL (9.4-12.4); Monocytes Percent Auto 9.6 % (2-11); Neutrophils Absolute Auto 5.9 x10*3/uL (2.0-8.3); Neutrophils Percent Auto 54.9 % (45-73); Platelet Count 306 X10*3/uL (160-400); Red Blood Count 5.52 X10*6/uL (4.60-5.80); Red Cell Distribution Width 13.1 % (11.0-16.0); White Blood Count 10.8 X10*3/uL (4.8-10.8)
[2023-10-19 05:19] LABS: Influenza A PCR NEGATIVE (Negative); Influenza B PCR NEGATIVE (Negative); Resp Syncy Virus RNA Qual PCR NEGATIVE (Negative); SARS COV2 PCR INHOUSE NEGATIVE (Negative)
[2023-10-19 05:22] LABS: Appearance Urine Clear; Color Urine Yellow; Glucose Urine UA >=1000 mg/dL (Negative); Leukocyte Esterase Urine Negative (Negative); Nitrite Urine Negative (Negative); PH 5.5 (5.0-9.0); UMIC TRIGGER UACC YES; Urine Blood Negative (Negative); Urine Ketones Negative (Negative); Urine Protein Trace mg/dL (Neg-Trace)
[2023-10-19 05:23] LABS: D Dimer High Sensitivity 230 NG/ML
[2023-10-19 05:25] VITALS: BP 138/90; PULSE 100; RESP 20; TEMP 36.9; O2SAT 95
[2023-10-19 05:25] LABS: Bacteria Urine None Seen (None Seen); Hyaline Casts Urine 0-2 /LPF (0-2); RBC Urine 0-2 /HPF (0-2); Squamous Epithelial Cell Urine 0-2 /HPF (0-2); WBC Urine 0-5 /HPF (0-5)
--- NOTE | 2023-10-19 05:26 | MHC.EDTECH ---
This pct recently assumed care of Patient ,rsv/covid and strep swab ,blood drawn including both sets of blood culture and lactic acid all sent to lab ,Patient ekg taken and was read by Provider ,Patient was change into gown ,And hooked up to classroom monitor ,vitals taken ,Patient in bed watching television ,Call berger within Pt reach .
[2023-10-19 05:32] LABS: Alanine Aminotransferase 26 U/L (0-40); Albumin Level 3.8 g/dL (3.5-5.0); Alkaline Phosphatase 84 U/L (39-117); Anion Gap 15 (12-20); Aspartate Amino Transferase 14 U/L (5-37); Bilirubin Direct 0.1 mg/dL (0.0-0.5); Bilirubin Total 0.5 mg/dL (0.0-1.0); Blood Urea Nitrogen 17 mg/dL (9-16); Calcium 9.8 mg/dL (8.4-10.2); Carbon Dioxide 23 mmol/L (22-29); Chloride 100 mmol/L (96-108); Creatinine Clr Calc Pharmacy 118.6; Estimated Glomerular Filt Rate > 60; Glucose Random 289 mg/dL (60-115); Lipase 32 U/L (8-78); Potassium 4.4 mmol/L (3.3-5.1); Sodium 134 mmol/L (135-145); Total Protein 7.4 g/dL (6.5-8.0)
[2023-10-19 05:33] LABS: B Type Natriuretic Peptide 10 pg/mL (<100); Troponin-I High Sensitivity 11.7 ng/L (<3.5-35.0)
[2023-10-19] MEDS: Albuterol Sulfate 2.5 MG, Albuterol/Iprat 2.5/0.5MG 3 ML 3 ML INHALE (05:42)
[2023-10-19 05:46] VITALS: PULSE 93; RESP 18; O2SAT 94
--- NOTE | 2023-10-19 06:24 | PC.NURSE ---
pt ambulated around the ER, no huffing and puffing. back to room and placed on O2 sat monitor, it was 93 on RA, pt cont to cough at times, will cont will plan of care
[2023-10-19 07:17] VITALS: BP 157/88; PULSE 113; RESP 16; TEMP -17.7; TEMP 0; O2SAT 94
== END 2023-10-19 07:19 | disposition home or self-care (01) ==
PROVIDERS: Emergency Provider Emergency Medicine; PCP Nurse Practitioner Family
DX: J40 Bronchitis, not specified as acute or chronic (principal); Z03.818 Encounter for observation for suspected exposure to other biological agents ruled out; R05.9 Cough, unspecified; R06.02 Shortness of breath; R06.00 Dyspnea, unspecified
CPT/HCPCS: 0241U; 36415; 71045; 80048; 80076; 81001; 83605; 83690; 83880; 84484; 85025; 85379; 87040; 87651; 93005; 94640; 96374; 99284; 99285; J2919

== ENCOUNTER → 2023-10-19 04:39 | Outpatient (BNV) | payer OTHER, SELFPAY | PROVIDERS: Emergency Provider Emergency Medicine; PCP Nurse Practitioner Family; Visit Provider Internal Medicine | DX: I49.1 Atrial premature depolarization (principal) | CPT/HCPCS: 93010 ==